=== PATIENT | female | born 1980 | race Caucasian/White ===

== ENCOUNTER 2023-02-08 14:45 | Outpatient (CLI) | payer OTHER | END 2023-02-08 14:46 | disposition home or self-care (01) | LOC: BICULT 14:45 | PROVIDERS: ATTEND Obstetrics & Gynecology | DX: N63.10 Unspecified lump in the right breast, unspecified quadrant (principal); N63.20 Unspecified lump in the left breast, unspecified quadrant ==

== ENCOUNTER → 2023-02-15 | Day surgery (SDC) | payer OTHER | END | disposition home or self-care (01) | LOC: BICULT 12:04 | PROVIDERS: ATTEND Obstetrics & Gynecology | PROC: 0H9U3ZX Drainage of Left Breast, Percutaneous Approach, Diagnostic (ICD-10-PCS; principal; 2023-02-15) | DX: N60.22 Fibroadenosis of left breast (principal); N60.32 Fibrosclerosis of left breast | CPT/HCPCS: 19083; 88305 ==

== ENCOUNTER 2024-07-02 14:32 | Emergency (ER) | payer OTHER | END 2024-07-02 19:00 | disposition left against medical advice (07) | LOC: ERS 14:32 | DX: Z53.21 Procedure and treatment not carried out due to patient leaving prior to being seen by health care provider (principal) ==